=== PATIENT | male | born 1930 | race Caucasian/White ===

== ENCOUNTER → 2020-05-15 | Outpatient (CLI) | payer MEDICARE, OTHER | LOC: CARD 09:45 | PROVIDERS: ATTEND Internal Medicine Interventional Cardiology | DX: I25.10 Atherosclerotic heart disease of native coronary artery without angina pectoris (principal); I10 Essential (primary) hypertension | CPT/HCPCS: 93306 ==

== ENCOUNTER 2021-04-22 16:11 | Emergency (ER) | payer MEDICARE, OTHER ==
[~2021-04-22] VITALS: Ht 167.7 cm; Wt 81.0 kg
[2021-04-22 16:45] LABS: BASOPHILS % (AUTO) 0 % (0-10); EOSINOPHILS # (AUTO) 0.2 10^3/uL (0.0-0.3); EOSINOPHILS % (AUTO) 2 % (0-10); HEMATOCRIT 44 % (40-54); HEMOGLOBIN 15.1 g/dL (13.3-17.7); LYMPHOCYTES % (AUTO) 26 % (12-44); MEAN CORPUSCULAR HEMOGLOBIN 31 pg (25-34); MEAN CORPUSCULAR HGB CONC 34 g/dL (32-36); MEAN CORPUSCULAR VOLUME 91 fL (80-99); MEAN PLATELET VOLUME 9.3 fL (9.0-12.2); MONOCYTES % (AUTO) 14 % (0-12); NEUTROPHILS # (AUTO) 4.3 10^3/uL (1.8-7.8); NEUTROPHILS % (AUTO) 57 % (42-75); PLATELET COUNT 175 10^3/uL (130-400); WHITE BLOOD COUNT 7.6 10^3/uL (4.3-11.0)
--- NOTE | 2021-04-22 16:55 | ED General ---
General Stated Complaint: CHEST PAIN Source of Information: Patient Exam Limitations: No Limitations (JUAN CARLOS TAYLOR APRN) History of Present Illness Date Seen by Provider: Apr 22, 2021 Time Seen by Provider: 16:53 Initial Comments To ER by private vehicle with reports of chest pressure onset this morning. Daughter clarifies that she was with him and it actually began at around 2 PM while at rest. History of CA with 3 coronary stents follows with Dr. Mahan. Most recent CA/cardiac catheterization in 2016. He has felt a little bit tired for the past few days but attributed that to being busier than usual. Timing/Duration: 1-2 Days Severity: Moderate Associated Systoms: Chest Pain (JUAN CARLOS TAYLOR APRN) Allergies and Home Medications Allergies Coded Allergies: No Known Drug Allergies (Unverified , 04/22/21) Patient Home Medication List Home Medication List Reviewed: Yes (JUAN CARLOS TAYLOR APRN) Review of Systems Review of Systems Constitutional: see HPI EENTM: see HPI Respiratory: no symptoms reported Cardiovascular: see HPI Genitourinary: no symptoms reported Musculoskeletal: no symptoms reported Skin: no symptoms reported Psychiatric/Neurological: No Symptoms Reported Hematologic/Lymphatic: No Symptoms Reported Immunological/Allergic: no symptoms reported (JUAN CARLOS TAYLOR APRN) Physical Exam Vital Signs Vital Signs - First Documented 04/22/21 04/22/21 16:25 16:50 Temp 37.0 Pulse 68 Resp 17 B/P (MAP) 163/81 (108) Pulse Ox 96 O2 Delivery Nasal Cannula O2 Flow Rate 2.00 FiO2 96 (PETROS DAVIES MD) Vital Signs Capillary Refill : (JUAN CARLOS TAYLOR APRN) Height, Weight, BMI Height: '" Weight: lbs. oz. kg; BMI Method: General Appearance: No Apparent Distress, WD/WN Eyes: Bilateral Eye Normal Inspection, Bilateral Eye PERRL, Bilateral Eye EOMI HEENT: PERRL/EOMI, TMs Normal Respiratory: No Accessory Muscle Use, No Respiratory Distress Cardiovascular: Regular Rate, Rhythm, Normal Peripheral Pulses Gastrointestinal: Normal Bowel Sounds, Non Tender, Soft Extremity: Normal Capillary Refill, Normal Inspection Neurologic/Psychiatric: Alert, Oriented x3 Skin: Normal Color, Warm/Dry (JUAN CARLOS TAYLOR APRN) Progress/Results/Core Measures Suspected Sepsis SIRS Temperature: Pulse: Respiratory Rate: Laboratory Tests 04/22/21 16:37: White Blood Count 7.6 Blood Pressure / Mean: Laboratory Tests 04/22/21 16:37: Creatinine 1.56H, INR Comment 1.0, Platelet Count 175, Total Bilirubin 0.8 (JUAN CARLOS TAYLOR APRN) Results/Orders Lab Results Laboratory Tests Test 04/22/21 16:37 04/22/21 18:16 Range/Units White Blood Count 7.6 4.3-11.0 10^3/uL Red Blood Count 4.87 4.30-5.52 10^6/uL Hemoglobin 15.1 13.3-17.7 g/dL Hematocrit 44 40-54 % Mean Corpuscular Volume 91 80-99 fL Mean Corpuscular Hemoglobin 31 25-34 pg Mean Corpuscular Hemoglobin Concent 34 32-36 g/dL Red Cell Distribution Width 12.4 10.0-14.5 % Platelet Count 175 130-400 10^3/uL Mean Platelet Volume 9.3 9.0-12.2 fL Immature Granulocyte % (Auto) 0 % Neutrophils (%) (Auto) 57 42-75 % Lymphocytes (%) (Auto) 26 12-44 % Monocytes (%) (Auto) 14 H 0-12 % Eosinophils (%) (Auto) 2 0-10 % Basophils (%) (Auto) 0 0-10 % Neutrophils # (Auto) 4.3 1.8-7.8 10^3/uL Lymphocytes # (Auto) 2.0 1.0-4.0 10^3/uL Monocytes # (Auto) 1.0 0.0-1.0 10^3/uL Eosinophils # (Auto) 0.2 0.0-0.3 10^3/uL Basophils # (Auto) 0.0 0.0-0.1 10^3/uL Immature Granulocyte # (Auto) 0.0 0.0-0.1 10^3/uL Prothrombin Time 13.3 12.2-14.7 SEC INR Comment 1.0 0.8-1.4 Activated Partial Thromboplast Time 34 24-35 SEC Sodium Level 136 135-145 MMOL/L Potassium Level 4.3 3.6-5.0 MMOL/L Chloride Level 105 98-107 MMOL/L Carbon Dioxide Level 22 21-32 MMOL/L Anion Gap 9 5-14 MMOL/L Blood Urea Nitrogen 20 H 7-18 MG/DL Creatinine 1.56 H 0.60-1.30 MG/DL Estimat Glomerular Filtration Rate 42 BUN/Creatinine Ratio 13 Glucose Level 145 H 70-105 MG/DL Calcium Level 8.9 8.5-10.1 MG/DL Corrected Calcium 9.1 8.5-10.1 MG/DL Magnesium Level 2.7 H 1.6-2.4 MG/DL Total Bilirubin 0.8 0.1-1.0 MG/DL Aspartate Amino Transf (AST/SGOT) 41 H 5-34 U/L Alanine Aminotransferase (ALT/SGPT) 21 0-55 U/L Alkaline Phosphatase 68 40-136 U/L Myoglobin 1028.1 H 903.3 H 10.0-92.0 NG/ML Troponin I < 0.028 < 0.028 <0.028 NG/ML Total Protein 6.5 6.4-8.2 GM/DL Albumin 3.8 3.2-4.5 GM/DL (PETROS DAVIES MD) My Orders Orders - PETROS DAVIES MD Cbc With Automated Diff (04/22/21 16:14) Magnesium (04/22/21 16:14) Chest 1 View, Ap/Pa Only (04/22/21 16:14) Ekg Tracing (04/22/21 16:14) Comprehensive Metabolic Panel (04/22/21 16:14) Myoglobin Serum (04/22/21 16:14) Protime With Inr (04/22/21 16:14) Partial Thromboplastin Time (04/22/21 16:14) O2 (04/22/21 16:14) Monitor-Rhythm Ecg Trace Only (04/22/21 16:14) Lipid Panel (04/23/21 06:00) Ed Iv/Invasive Line Start (04/22/21 16:14) Troponin I (04/22/21 16:14) (PETROS DAVIES MD) Medications Given in ED Current Medications Medications Dose Ordered Sig/Jerad Route Start Time Stop Time Status Last Admin Dose Admin Aspirin 324 mg ONCE ONCE PO 04/22/21 17:00 04/22/21 17:01 DC 04/22/21 17:07 324 MG (PETROS DAVIES MD) Vital Signs/I&O 04/22/21 04/22/21 04/22/21 04/22/21 16:25 16:45 16:50 19:02 Temp 37.0 36.9 Pulse 68 72 Resp 17 18 B/P (MAP) 163/81 (108) 124/65 Pulse Ox 96 98 O2 Delivery Nasal Cannula Nasal Cannula Nasal Cannula Room Air O2 Flow Rate 2.00 2.0 2.00 FiO2 96 (PETROS DAVIES MD) Vital Signs/I&O Capillary Refill : (JUAN CARLOS TAYLOR APRN) Diagnostic Imaging Diagonstic Imaging: Xray Comments NAME: [facility] REC#: [id number] PT STATUS: REG ER : 1930 PHYSICIAN: PETROS DAVIES MD ADMIT DATE: 04/22/21/ER Draft Date of Exam:04/22/21 CHEST 1 VIEW, AP/PA ONLY INDICATION: Chest pain. COMPARISON: None FINDINGS: Single frontal view of the chest demonstrates normal heart size and pulmonary vascularity. Evaluation of the lung warren demonstrates 1 cm nodular opacity within the lateral left lung base. Otherwise, lungs are clear. No large pleural effusion or pneumothorax is seen. The visualized osseous structures show no acute abnormalities. IMPRESSION: 1. No evidence of failure or focal infiltrate. 2. Nodular opacity within the lateral left lung base. Although this may be related to superimposition of pericardial fat or atelectasis, true soft tissue nodule cannot be excluded. Correlation with CT of the chest is recommended and could be performed on a nonemergent basis. Dictated on workstation # [id number] Dict: 04/22/21 1650 Trans: 04/22/21 1653 [facility] [id number] Interpreted by: TERRI SU MD Electronically signed by: (JUAN CARLOS TAYLOR APRN) Departure Communication (Admissions) He has no chest pain at this time his EKG shows sinus rhythm rate of [address] segment elevation or depression. No ectopy and normal intervals. 1900*alert and oriented still symptom-free. Heart rate 50 sinus bradycardia blood pressure 136/71. No chest pain now or at any time during his ER stay. Repeat troponin drawn 4 hours after the onset of pain is still negative. Myoglobin is falling. He can follow-up outpatient. (JUAN CARLOS TAYLOR APRN) Impression Primary Impression: Chest pain Disposition: 01 HOME, SELF-CARE Condition: Stable Departure-Patient Inst. Decision time for Depature: 18:51 (JUAN CARLOS TAYLOR APRN) Referrals: TROY CONRAD (PCP/Family) Primary Care Physician Patient Instructions: Chest Pain That Is Not Caused by the Heart (DC) ATTENDING PHYSICIAN NOTE: I was physically present as attending physician in the emergency department during the care of this patient, but I was not directly involved in the decision making or delivery of care for this patient. (PETROS DAVIES MD) JUAN CARLOS TAYLOR APRN Apr 22, 2021 16:55 PETROS DAVIES MD Apr 22, 2021 22:05
[2021-04-22 16:58] LABS: PROTHROMBIN TIME PATIENT 13.3 SEC (12.2-14.7)
[2021-04-22] MEDS ORDERED: ASPIRIN 81 MG CHEW (CHILDREN'S ASA) PO ONE (17:00)
[2021-04-22 17:04] LABS: ALBUMIN 3.8 GM/DL (3.2-4.5); BILIRUBIN,TOTAL 0.8 MG/DL (0.1-1.0); CALCIUM 8.9 MG/DL (8.5-10.1); CREATININE SERUM 1.56 MG/DL (0.60-1.30); MAGNESIUM 2.7 MG/DL (1.6-2.4); POTASSIUM 4.3 MMOL/L (3.6-5.0); TOTAL PROTEIN 6.5 GM/DL (6.4-8.2)
[2021-04-22] MEDS ORDERED: LACTATED RINGERS 1,000 ML IV SCH (17:30)
[2021-04-22 19:02] VITALS: BP 124/65
== END 2021-04-22 19:02 | disposition home or self-care (01) ==
LOC: EDUNIT# 16:11 → ER 16:13
DX: R07.9 Chest pain, unspecified (principal); I25.2 Old myocardial infarction; Z95.5 Presence of coronary angioplasty implant and graft
CPT/HCPCS: 36415; 71045; 80053; 83735; 83874; 84484; 85025; 85610; 85730; 93005; 93041